=== PATIENT | female | born 1990 | race Two or more races ===

== ENCOUNTER 2024-10-10 02:22 | Emergency (ER) | payer OTHER ==
[~2024-10-10] VITALS: Ht 162.6 cm; Wt 73.5 kg
[2024-10-10] MEDS ORDERED: MAGNESIUM CITR100 MG PO (03:09)
== END 2024-10-10 05:20 | disposition home or self-care (01) ==
LOC: ER 02:24
DX: F41.8 Other specified anxiety disorders (principal); Z88.0 Allergy status to penicillin; Z88.2 Allergy status to sulfonamides

== ENCOUNTER 2025-07-18 10:14 | Emergency (ER) | payer OTHER ==
[~2025-07-18] VITALS: Ht 162.6 cm; Wt 76.2 kg
[~2025-07-18 10:14] MED LIST: MAGNESIUM CITR100 MG PO
[2025-07-18 11:48] LABS: BASO % 0.5 % (0.1-1.2); EOS # 0.02 (0.04-0.54); EOS % 0.3 % (0.7-7.0); LYMPH # 1.59 (1.18-3.74); LYMPH % 25.1 % (19.3-53.1); MEAN PLATELET VOLUME 10.50 fl (9.4-12.4); MONO # 0.45 (0.24-0.82); MONO % 7.1 % (4.7-12.5); NEUT # 4.23 (1.56-6.13); NEUT % 66.8 % (34.0-71.1); RED CELL DISTRIBUTION WIDTH 12.1 % (11.6-14.4)
== END 2025-07-18 14:13 | disposition home or self-care (01) ==
LOC: ER 10:14
PROVIDERS: General Practice
DX: N93.8 Other specified abnormal uterine and vaginal bleeding (principal); Z88.2 Allergy status to sulfonamides